=== PATIENT | female | born 1975 | race African-American/Black ===

== ENCOUNTER 2021-05-05 18:01 | Emergency (ER) | payer OTHER ==
[~2021-05-05] VITALS: Ht 170.2 cm; Wt 97.8 kg
[2021-05-05] MEDS ORDERED: ONDANSETRON 4 MG ORAL DISINTEGRATING TAB PO ONE (20:05)
[2021-05-05] MEDS ORDERED: ACETAMINOPHEN 500 MG TAB PO ONE (20:05)
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
[2021-05-05 21:57] VITALS: BP 132/61
== END 2021-05-05 22:07 | disposition home or self-care (01) ==
LOC: M ED 18:01
DX: S00.91XA Abrasion of unspecified part of head, initial encounter (principal); S22.32XA Fracture of one rib, left side, initial encounter for closed fracture; M25.562 Pain in left knee; M25.532 Pain in left wrist; V49.50XA Passenger injured in collision with unspecified motor vehicles in traffic accident, initial encounter; N83.202 Unspecified ovarian cyst, left side; Z88.6 Allergy status to analgesic agent; Y92.9 Unspecified place or not applicable; Y93.9 Activity, unspecified; Y99.9 Unspecified external cause status

== ENCOUNTER 2021-06-21 18:17 | Emergency (ER) | payer OTHER, SELFPAY ==
[~2021-06-21] VITALS: Ht 170.2 cm; Wt 67.8 kg
[2021-06-22] MEDS ORDERED: NS 1,000 ML IV ONE (06:25)
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
[2021-06-22 07:06] LABS: BASO # 0.1 10^3/uL (0.0-0.2); BASO % 0.7 % (0.0-1.0); EOS # 0.1 10^3/uL (0.0-0.5); EOS % 1.5 % (0.0-3.0); HEMATOCRIT 39.7 % (36.0-47.0); HEMOGLOBIN 12.8 g/dl (12.0-15.5); LYMPH # 2.8 10^3/uL (1.5-5.0); MEAN CORPUSCULAR HEMOGLOBIN 27.1 pg (27.0-33.0); MEAN CORPUSCULAR HGB CONC 32.2 g/dl (32.0-36.5); MEAN CORPUSCULAR VOLUME 84.1 fl (80.0-96.0); MONO # 0.5 10^3/uL (0.0-0.8); MONO % 5.8 % (2.0-8.0); NEUTROPHILS # 5.3 10^3/uL (1.5-8.5); NEUTROPHILS % 59.8 % (36.0-66.0); PLATELET COUNT, AUTOMATED 379 10^3/uL (150-450); RED BLOOD COUNT 4.72 10^6/uL (4.00-5.40); WHITE BLOOD COUNT 8.8 10^3/uL (4.0-10.0)
[2021-06-22 07:22] LABS: ERYTHROCYTE SEDIMENTATION RATE 7 mm/hr (0-20)
[2021-06-22 07:34] LABS: ALBUMIN 3.9 GM/DL (3.2-5.2); ALT/SGPT 20 U/L (12-78); BILIRUBIN,DIRECT 0.2 MG/DL (0.0-0.2); BILIRUBIN,TOTAL 0.9 MG/DL (0.2-1.0); C REACTIVE PROTEIN QUANTITATIV < 0.30 MG/DL (0.00-0.30); LIPASE 103 U/L (73-393); TOTAL PROTEIN 7.5 GM/DL (6.4-8.2)
[2021-06-22] MEDS ORDERED: ACETAMINOPHEN 325 MG TAB PO ONE (07:50)
[2021-06-22] MEDS ORDERED: diphenhydrAMINE 50MG/ML VIAL (J1200) IV ONE (07:55)
[2021-06-22 11:45] VITALS: BP 145/75
== END 2021-06-22 11:51 | disposition home or self-care (01) ==
LOC: M ED 18:17
DX: M54.2 Cervicalgia (principal); R51.9 Headache, unspecified; F07.81 Postconcussional syndrome; Z88.8 Allergy status to other drugs, medicaments and biological substances
CPT/HCPCS: 70450; 72125; 80047; 80076; 83690; 85025; 85652; 86140; 96361; 96374; 99284; J1200

== ENCOUNTER → 2021-09-25 | Outpatient (CLI) | payer OTHER | LOC: M RAD 16:16 | PROVIDERS: ATTEND Orthopaedic Surgery | DX: M51.26 Other intervertebral disc displacement, lumbar region (principal); M51.37 Other intervertebral disc degeneration, lumbosacral region ==